=== PATIENT | female | born 1975 | race Caucasian/White ===

== ENCOUNTER 2019-09-28 20:58 | Emergency (ER) | payer OTHER ==
[~2019-09-28] VITALS: Ht 170.2 cm; Wt 118.2 kg
[2019-09-28] MEDS ORDERED: ALBU8HFA IH (21:11)
[2019-09-28 21:51] VITALS: BP 145/78
[2019-09-28] MEDS ORDERED: DiphenhydrAMINE HCL 50 MG CAPSULE PO ONE (22:45)
== END 2019-09-28 23:14 | disposition home or self-care (01) ==
LOC: EMS 21:00
DX: T63.441A Toxic effect of venom of bees, accidental (unintentional), initial encounter (principal); R20.0 Anesthesia of skin; M79.89 Other specified soft tissue disorders; F17.210 Nicotine dependence, cigarettes, uncomplicated; Y92.89 Other specified places as the place of occurrence of the external cause